=== PATIENT | female | born 1975 | race Two or more races ===

== ENCOUNTER 2024-12-09 18:38 | Emergency (ER) | payer MEDICAID, SELFPAY ==
--- NOTE | 2024-12-09 18:47 | EKG_ITS ---
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
[2024-12-09 19:14] VITALS: BP 130/85; PULSE 79; RESP 18; TEMP 37.3; O2SAT 98
--- NOTE | 2024-12-09 19:24 | XR_ITS ---
EXAMINATION: PA chest single view TECHNIQUE: Upright PA chest single view Date and time: December 09, 2024, 1924 hours, comparison May 02, 2019 INDICATIONS: Chest pain today FINDINGS: Normal heart size The lungs are clear. The osseous structures are intact IMPRESSION: No active disease
--- NOTE | 2024-12-09 19:26 | PD.EDANX ---
ED Anxiety RME/HPI General Chief Complaint: Recheck/Abnormal Lab/Rx Stated Complaint: Chest pain, numbness to hands/legs Time Seen by Provider: 12/09/24 19:23 Arrival date/time: 12/09/24 18:38 49F with history of DM presents to ED with anxiety, CP, and generalized body numbness for 1 day. Patient states more stress in life recently, but denies SI/HI. Patient denies URI symptoms. Limitations: no limitations Related Data Home Medications ?Medication ?Instructions ?Recorded ?Confirmed glipizide 5 mg tablet 5 mg PO BID #0 tabs 09/22/15 05/02/19 metformin 1,000 mg tablet 1,000 mg PO BID #0 tabs 09/22/15 05/02/19 (Glucophage) Allergies Allergy/AdvReac Type Severity Reaction Status Date / Time bee venom protein (honey bee) Allergy Severe Anaphylaxis Verified 12/09/24 18:44 Review of Systems Review of Systems Systems Reviewed: All systems reviewed, normal except as documented Cardiovascular Cardiovascular: Reports as per HPI and Reports chest pain Musculoskeletal Musculoskeletal: Reports tingling Neurologic Neurologic: Reports as per HPI and Reports tingling Past Medical History Past Medical History CARDIAC: Negative Congestive Heart Failure RESPIRATORY: Negative Chronic Obstructive Pulmonary Disease (COPD) GENITOURINARY: Negative Renal Disease ENDOCRINE: Positive Diabetes Mellitus Type 2; Negative Diabetes Mellitus Type 1 Social History SMOKING STATUS: Never smoker ED Exam General Limitations: Present no limitations General appearance: Present alert, in no apparent distress and anxious Head Head exam: Present atraumatic Neck Neck exam: Present normal inspection, full ROM and trachea midline Chest Chest inspection: Present normal inspection and symmetric chest wall rise Respiratory Respiratory exam: Present normal lung sounds bilaterally Neurological Exam Neurological exam: Present alert and oriented X3 Psychiatric Psychiatric exam: Present normal affect and anxious Skin Skin exam: Present warm, dry, intact and normal color Course Quality Measures none Orders Category Date Time Status EKG (ED ONLY) *Do not use* NOW Care 12/09/24 18:47 Completed EKG (ED Only) Stat Exams 12/09/24 18:47 Draft XR chest 1V portable Stat Exams 12/09/24 19:24 Ordered CBC Stat Lab 12/09/24 19:24 Ordered Comprehensive Metabolic Panel Stat Lab 12/09/24 19:24 Ordered Troponin I Stat Lab 12/09/24 19:24 Ordered Diazepam [Valium] Med 12/09/24 19:24 Discontinued 10 mg PO X1 ONE Vital Signs Vital signs: Vital Signs Temperature 99.2 F 12/09/24 19:14 Pulse Rate 79 12/09/24 19:14 Respiratory Rate 18 12/09/24 19:14 Blood Pressure 130/85 H 12/09/24 19:14 Pulse Oximetry (%) 98 12/09/24 19:14 Oxygen Delivery Method Room Air 12/09/24 19:14 Anxiety MDM Narrative MDM Narrative: 49F with history of DM presents to ED with anxiety, CP, and generalized body numbness for 1 day. Patient states more stress in life recently, but denies SI/HI. Patient denies URI symptoms. Physical exam reveals clear lungs and normal WOB. Patient is afebrile, alert, but quite anxious. EKG is NSR. CXR unremarkable. No leukocytosis or anemia. CMP unremarkable. Trop normal. Valium improved symptoms. Patient data External records reviewed:: [facility] previous records Clinical information provided by:: patient Social determinants that could affect healthcare access:: none Patient has the following chronic illnesses:: DM How is presenting disease/condition affected by chronic disease/condition?: exacerbated by Evaluation data The following diagnostics were reviewed and interpreted by me:: lab results, radiology exam(s) and EKG tracing(s) Lab and/or radiology exams considered but not ordered:: ordered Interpretation Summary: above Medications / Prescriptions Medications or Prescriptions considered but not ordered:: ordered Medication administrations:: Medication Administration History Discontinued Medications Diazepam (Diazepam 5 Mg Tablet) 10 mg PO X1 ONE Stop: 12/09/24 19:25 Consultations Consultation(s) initiated? (list below): No Diagnosis Differential diagnosis anxiety: hyperventilation, panic disorder, acute anxiety and other (ACS) Most likely diagnosis given after review of the tests above:: anxiety stress reaction Admission Indicated Admission indicated?: not indicated Admission Request Was there a request for admission?: No Disposition Plan Disposition Plan: Discharge Discharge Attestation Discharge Attestation: The patient and all family members were given an opportunity to ask questions and understood the discharge instructions. Discharge instructions specifically effects, indications for sooner follow up or return to the emergency department, and the expected course of current diagnosis. Patient condition: Stable Discharge Plan Plan Patient Disposition: HOME (Self Care) Discharge Disposition comment: Stable Prescriptions/Referrals Prescriptions/Med Rec: No Action metformin [Glucophage] 1,000 MG tablet 1,000 mg PO BID Qty: 0 glipizide 5 MG tablet 5 mg PO BID Qty: 0 Referrals: Guillermo Cole MD [Primary Care Provider, Family Practice] - In 1 week Problem List Clinical Impression: Anxiety in acute stress reaction Patient/Caregiver Discharge Instructions Education Materials: Your Body's Response to Anxiety Additional Instructions: Please follow-up with PCP within 24-48 hours and return immediately if symptoms worsen. Print Language: Korean Stand Alone Forms: Patient Portal Info Letter PA/MAIL CARRIER Supervising Physician PA/MAIL CARRIER Supervising Physician: Dr. Martinez
[2024-12-09] MEDS: DIAZEPAM 5 MG TABLET 10 MG PO (19:31)
[2024-12-09 20:08] LABS: Basophils # (Auto) 0.1 Thou/mm3 (0.0-0.2); Basophils % (Auto) 1 % (0-2.5); Eosinophils # (Auto) 0.1 Thou/mm3 (0.0-0.5); Eosinophils % (Auto) 1 % (0-10); Hematocrit 41.6 % (36.0-46.0); Hemoglobin 14.2 g/dL (12.0-16.0); Immature Granulocytes Auto 0.03 Thou/mm3 (0.00-0.00); Lymphocytes # (Auto) 2.8 Thou/mm3 (1.0-4.8); Lymphocytes % (Auto) 27 % (10-50); Mean Corpuscular HGB Conc 34.1 g/dl (31.0-37.0); Mean Corpuscular Hemoglobin 29.9 pg (25.0-35.0); Mean Corpuscular Volume 88 fL (80-100); Monocytes # (Auto) 0.8 Thou/mm3 (0.0-0.8); Monocytes % (Auto) 8 % (0-12); Neutrophils # (Auto) 6.5 Thou/mm3 (1.8-7.7); Neutrophils % (Auto) 63 % (37-80); Nucleated Red Blood Cell # 0.00 Thou/mm3 (0.00-0.00); Nucleated Red Blood Cell % 0 /100 WBC (0); Platelet Count 338 Thou/mm3 (140-440); RDW Standard Deviation 39.9 fL (36.4-46.3); Red Blood Count 4.75 Miln/mm3 (4.00-5.20); White Blood Count 10.3 Thou/mm3 (3.6-11.0)
[2024-12-09 20:23] LABS: Alanine Aminotransferase 14 U/L (10-49); Albumin, Serum 4.8 gm/dL (3.5-5.0); Albumin/Globulin Ratio 1.5 (1.2-2.2); Alkaline Phosphatase 117 U/L (46-116); Anion Gap 11 (7-16); Aspartate Amino Transferase 19 U/L (0-34); BUN/Creatinine Ratio 11 Ratio (12-20); Bilirubin,Total 0.5 mg/dL (0.3-1.2); Blood Urea Nitrogen 9 mg/dL (9-23); Calcium 9.8 mg/dL (8.3-10.6); Calcium (Corrected) 9.8 mg/dL (8.5-10.1); Carbon Dioxide 25.7 mMol/L (20.0-31.0); Chloride 101 mMol/L (98-107); Creatinine (Component) 0.8 mg/dL (0.6-1.3); Globulin 3.1 gm/dL (2.3-3.5); Glucose 159 mg/dL (74-106); Osmolality,Calculated 277 (275-295); Potassium 3.4 mMol/L (3.4-5.1); Sodium 138 mMol/L (136-145); Total Protein 7.9 gm/dL (5.7-8.2); Troponin I < 0.002 ng/mL (0.0-0.045); eGFR > 60 See Note
[2024-12-09 20:36] VITALS: BP 122/82; PULSE 77
== END 2024-12-09 20:36 | disposition home or self-care (01) ==
PROVIDERS: Physician Assistant; Emergency Provider Emergency Medicine; PCP Family Medicine
DX: F41.1 Generalized anxiety disorder (principal); F43.0 Acute stress reaction; E11.9 Type 2 diabetes mellitus without complications; Z79.84 Long term (current) use of oral hypoglycemic drugs
CPT/HCPCS: 36415; 71045; 80053; 84484; 85025; 93005; 99283; A9270